=== PATIENT | female | born 1980 | race Caucasian/White ===

== ENCOUNTER 2017-11-17 13:42 | Emergency (ER) | payer BC, SELFPAY ==
[2017-11-17 14:15] VITALS: BP 120/81; PULSE 78; RESP 20; TEMP 36.8; O2SAT 99; BMI 30.2
--- NOTE | 2017-11-17 14:30 | HMH.EDUTC ---
[facility] [place] Clinical Impression: Sinusitis Qualifiers: Sinusitis location: other Chronicity: unspecified Qualified Code(s): J32.9 - Chronic sinusitis, unspecified Disposition: Home, Self-Care Condition on Discharge: Good Instructions: Sinusitis, Sinus Headache, DI for Sinusitis Additional Instructions: Take medication as prescribed Follow up with family doctor Return if needed Drink plenty of fluids Vaporizer or humidifier will help with breathing and sooth airway passages and cough Prescriptions: Amoxicillin/Potassium Clav [Augmentin 875-125 Tablet] 1 tab PO Q12H #14 tab Guaifenesin/Dextromethorphan [Mucinex Dm ER 1,200-60 mg Tab] 1 each PO Q12H #20 tab.er.12h predniSONE [Prednisone 20mg Tab] 20 mg PO BID #10 tab Promethazine/Dextromethorphan [Promethazine-Dm Syrup] 5 ml PO Q4H PRN #250 syrup PRN Reason: Cough Time of Disposition: 14:39 Medical Decision Making - Medical Records Medical records reviewed: Yes: I reviewed the patient's medical records. Vital Signs: 11/17/17 14:15 Temperature 98.3 F Temperature Source Temporal Artery Scan Pulse Rate [Left Brachial] 78 Respiratory Rate 20 Blood Pressure [Left Arm] 120/81 Blood Pressure Mean [Left Arm] 94 Blood Pressure Source [Left Arm] Automatic Cuff Blood Pressure Position [Left Arm] Sitting 02 Sat by Pulse Oximetry 99 Oxygen Delivery Method Room Air - Jose Inquiry Pt receiving controlled substance: No Jose was queried for this patient: No [facility] [place] - General Stated complaint: Sore throat, congestion, fever Mode of Arrival: Ambulatory Source of Information: Patient Limitations: No Limitations Description of Symptoms (Recalled from Triage Doc. by RN): C/O fever, nasal congestion, aches, MEI, earache HEENT Symptoms (Recalled from RN notes): Yes (nasal congestion, MEI, earache) Resp Symptoms (Recalled from RN notes): No Skin Symptoms (Recalled from RN notes): No MS Symptoms (Recalled from RN notes): Yes (bodyaches) Functional Status (Recalled from RN notes): n/a - History of Present Illness Provider Complaint: Patient state that she has not been feeling well for a couple of days States that she is having sore throat cough, nasal congestion along with headache States that she has continued to get worse over the last 2 days and she was worried that she may have the flu - Related Data Previous Rx's Medication Instructions Recorded Amoxicillin/Potassium Clav 1 tab PO Q12H #14 tab 11/17/17 [Augmentin 875-125 Tablet] Guaifenesin/Dextromethorphan 1 each PO Q12H #20 tab.er.12h 11/17/17 [Mucinex Dm ER 1,200-60 mg Tab] Promethazine/Dextromethorphan 5 ml PO Q4H PRN #250 syrup 11/17/17 [Promethazine-Dm Syrup] predniSONE [Prednisone 20mg 20 mg PO BID #10 tab 11/17/17 Tab] - Worker's Comp Is this a Worker's Comp case?: No [facility] History I have reviewed the patient's past medical history: Yes Medical History: Denies:: Cancer, Diabetes Mellitus Type 1, Diabetes Mellitus Type 2, MRSA Laterality Cases: Bilateral: Tonsillectomy Amputation: No Fractures: No - *Social History Smoking Status: Never smoker Alcohol Intake: never - Psychiatric History Expresses thoughts of harming self/others: None Suicide Plan Description: No Plan ROS Obtained: Yes All systems reviewed & no additional complaints - Constitutional Constitutional: Reports body ache, Reports chills, Reports fever(s) - ENT Ears, Nose, Mouth, and Throat: Reports sinus pain, Reports sore throat Physical Exam - General General appearance: alert - Expanded ENT Exam Nose exam: Present: sinus tenderness, other (reports thick yellow draiange) - Respiratory Respiratory exam: Present: normal lung sounds bilaterally. Absent: respiratory distress - Cardiovascular Cardiovascular exam: Present: regular rate, normal rhythm. Absent: JVD - Neurological Exam Neurological exam: Present: alert, oriented X3
--- NOTE | 2017-11-17 14:33 | ED_ITS ---
[facility] [place] Clinical Impression: Sinusitis Qualifiers: Sinusitis location: other Chronicity: unspecified Qualified Code(s): J32.9 - Chronic sinusitis, unspecified Disposition: Home, Self-Care Condition on Discharge: Good Instructions: Sinusitis, Sinus Headache, DI for Sinusitis Additional Instructions: Take medication as prescribed Follow up with family doctor Return if needed Drink plenty of fluids Vaporizer or humidifier will help with breathing and sooth airway passages and cough Prescriptions: Amoxicillin/Potassium Clav [Augmentin 875-125 Tablet] 1 tab PO Q12H #14 tab Guaifenesin/Dextromethorphan [Mucinex Dm ER 1,200-60 mg Tab] 1 each PO Q12H #20 tab.er.12h predniSONE [Prednisone 20mg Tab] 20 mg PO BID #10 tab Promethazine/Dextromethorphan [Promethazine-Dm Syrup] 5 ml PO Q4H PRN #250 syrup PRN Reason: Cough Time of Disposition: 14:39 Medical Decision Making - Medical Records Medical records reviewed: Yes: I reviewed the patient's medical records. Vital Signs: 11/17/17 14:15 Temperature 98.3 F Temperature Source Temporal Artery Scan Pulse Rate [Left Brachial] 78 Respiratory Rate 20 Blood Pressure [Left Arm] 120/81 Blood Pressure Mean [Left Arm] 94 Blood Pressure Source [Left Arm] Automatic Cuff Blood Pressure Position [Left Arm] Sitting 02 Sat by Pulse Oximetry 99 Oxygen Delivery Method Room Air - Jose Inquiry Pt receiving controlled substance: No Jose was queried for this patient: No [facility] [place] HPI - General Stated complaint: Sore throat, congestion, fever Mode of Arrival: Ambulatory Source of Information: Patient Limitations: No Limitations Description of Symptoms (Recalled from Triage Doc. by RN): C/O fever, nasal congestion, aches, MEI, earache HEENT Symptoms (Recalled from RN notes): Yes (nasal congestion, MEI, earache) Resp Symptoms (Recalled from RN notes): No Skin Symptoms (Recalled from RN notes): No MS Symptoms (Recalled from RN notes): Yes (bodyaches) Functional Status (Recalled from RN notes): n/a - History of Present Illness Provider Complaint: Patient state that she has not been feeling well for a couple of days States that she is having sore throat cough, nasal congestion along with headache States that she has continued to get worse over the last 2 days and she was worried that she may have the flu - Related Data Previous Rx's Medication Instructions Recorded Amoxicillin/Potassium Clav 1 tab PO Q12H #14 tab 11/17/17 [Augmentin 875-125 Tablet] Guaifenesin/Dextromethorphan 1 each PO Q12H #20 tab.er.12h 11/17/17 [Mucinex Dm ER 1,200-60 mg Tab] Promethazine/Dextromethorphan 5 ml PO Q4H PRN #250 syrup 11/17/17 [Promethazine-Dm Syrup] predniSONE [Prednisone 20mg 20 mg PO BID #10 tab 11/17/17 Tab] - Worker's Comp Is this a Worker's Comp case?: No [facility] History I have reviewed the patient's past medical history: Yes Medical History: Denies:: Cancer, Diabetes Mellitus Type 1, Diabetes Mellitus Type 2, MRSA Laterality Cases: Bilateral: Tonsillectomy Amputation: No Fractures: No - *Social History Smoking Status: Never smoker Alcohol Intake: never - Psychiatric History Expresses thoughts of harming self/others: None Suicide Plan Description: No Plan ROS Obtained: Yes All systems reviewed & no additional complaints - Constitutional Constitutional: Re
[2017-11-17 14:52] LABS: UTC Influenza A Antigen Negative (Negative); UTC Influenza B Antigen Negative (Negative)
[2017-11-17 15:31] VITALS: BP 120/81; PULSE 78; RESP 20; TEMP 36.8; O2SAT 99
== END 2017-11-17 15:32 | disposition home or self-care (01) ==
PROVIDERS: Emergency Provider Nurse Practitioner
DX: J32.9 Chronic sinusitis, unspecified (principal)
CPT/HCPCS: 87804; 99202